=== PATIENT | female | born 1980 | race Two or more races ===

== ENCOUNTER 2020-01-08 17:05 | Emergency (ER) | payer MEDICAID, MEDICARE ==
[~2020-01-08] VITALS: Ht 165.1 cm; Wt 98.0 kg
[2020-01-08] MEDS ORDERED: IBUPROFEN 800MG TABLET PO ONE (20:00)
[2020-01-08 22:23] VITALS: BP 118/76
== END 2020-01-08 22:24 | disposition home or self-care (01) ==
LOC: ER 17:40
DX: M79.661 Pain in right lower leg (principal); Z85.71 Personal history of Hodgkin lymphoma; Z88.1 Allergy status to other antibiotic agents; Z88.3 Allergy status to other anti-infective agents; Z88.2 Allergy status to sulfonamides; Z94.81 Bone marrow transplant status; Z87.19 Personal history of other diseases of the digestive system
CPT/HCPCS: 81025; 93970; 99284